=== PATIENT | female | born 1995 | race Two or more races ===

== ENCOUNTER 2020-02-25 20:30 | Emergency (ER) | payer BC ==
[~2020-02-25] VITALS: Ht 157.5 cm; Wt 52.2 kg
[2020-02-25 20:39] VITALS: Ht 157.5 cm; Wt 52.2 kg
[2020-02-25 21:56] LABS: BASOPHIL % 0.3 % (0-2); PLATELET COUNT 177 x10^3mcL (130-400); RED CELL DISTRIBUTION WIDTH 12.6 % (11.5-14.5)
[2020-02-26 00:36] VITALS: BP 110/58
== END 2020-02-26 00:36 | disposition home or self-care (01) ==
LOC: ED 20:30
PROVIDERS: Emergency Medicine
DX: O26.891 Other specified pregnancy related conditions, first trimester (principal); N93.9 Abnormal uterine and vaginal bleeding, unspecified; Z3A.08 8 weeks gestation of pregnancy
CPT/HCPCS: 36415; J2001